=== PATIENT | male | born 1970 | race Two or more races ===

== ENCOUNTER 2021-03-25 23:32 | Emergency (ER) | payer BC ==
[~2021-03-25] VITALS: Ht 182.9 cm; Wt 79.4 kg
[2021-03-26] MEDS ORDERED: CIPRO500 MG PO (05:18)
[2021-03-26] MEDS ORDERED: TAMS0.4C PO (05:18)
[2021-03-26] MEDS ORDERED: KETO10TA2 PO (05:18)
== END 2021-03-26 | disposition home or self-care (01) ==
LOC: ER 23:32
DX: N23 Unspecified renal colic (principal)